=== PATIENT | female | born 1955 | race Caucasian/White ===

== ENCOUNTER 2016-12-14 13:49 | Day surgery (SDC) | payer OTHER ==
[2016-12-14] VITALS (9 sets, daily range): BP systolic 93–125; BP diastolic 59–78; PULSE 48–76; RESP 15–26; Ht 154.9 cm; Wt 69.3 kg
[~2016-12-14] VITALS: Ht 154.9 cm; Wt 69.3 kg
[~2016-12-14 13:49] MED LIST: CEFAZOLIN 2 GM/50 ML (PMX) 50 ML IVPB SCH; DESFLURANE 15 MIN ONE; DEXAMETHASONE 4 MG/ML 1 ML INJ ONE; IBUP-1542 PO; SOD CHLORIDE 0.9% 1,000 ML IV SCH; SUCCINYLCHOLINE CHLORIDE 100 MG/5 ML SYG IV ONE; TRAM50TA2 PO
[2016-12-14] MEDS ORDERED: BUPIVACAINE 0.25%/EPI (SDV) 10 ML INJ ONE (16:05)
[2016-12-14] MEDS ORDERED: LIDOCAINE 2% (SDV) 5 ML INJ ONE (16:15)
[2016-12-14] MEDS ORDERED: MIDAZOLAM 1 MG/ML 2 ML INJ ONE (16:15)
[2016-12-14] MEDS ORDERED: PROPOFOL 20 ML ONE (16:15)
[2016-12-14] MEDS ORDERED: CEFAZOLIN 1 GM INJ ONE (16:29)
[2016-12-14] MEDS ORDERED: DEXAMETHASONE 4 MG/ML 1 ML INJ ONE (16:33)
[2016-12-14] MEDS ORDERED: ONDANSETRON 4 MG INJ ONE (16:33)
[2016-12-14] MEDS ORDERED: KETOROLAC 30 MG INJ ONE (17:01)
--- NOTE | 2016-12-14 17:13 | HPN ---
Date/Time of Note Date/Time of Note DATE: 12/14/16 TIME: 17:12 Interval H&P Admission Note Pt. seen H&P reviewed: No system changes AGATA KRAUSE MD Dec 14, 2016 17:13
--- NOTE | 2016-12-14 17:16 | OPR ---
Date/Time of Note Date/Time of Note DATE: 12/14/16 TIME: 17:13 Operative Report Procedure Date: Dec 14, 2016 Preoperative Diagnosis Back mass Postoperative Diagnosis Back mass Operation Performed Excision of back mass, subfascial, 5 cm x 4.5 cm Surgeon: AGATA KRAUSE MD Anesthesia Type: general Anesthesiologist: KAJAL VIVAR DO Estimated Blood Loss: minimal Specimens Soft tissue mass of back Complications: no Pt Condition Post Procedure: stable Disposition: PACU Indications Patient is a 61-year-old female who presented to the office complaining of a mass of the lower back. This is been growing and causing increasing pain and discomfort. She was scheduled for elective excision for symptom relief and definitive pathological diagnosis. All risks and benefits of the procedure including, but not limited to: Wound infection, excessive bleeding, postoperative seroma/hematoma formation, mass recurrence etc. were all explained to the patient in full detail. She fully understood and wished to proceed with the procedure. Informed consent was obtained. Operative\Procedure Findings Consistent with lipoma 5 cm x 4.5 cm. Subfascial Procedure Description Patient was brought to the operating room placed supine on the operating table. Bilateral sequential compression devices were placed on both lower extremities. A dose of broad-spectrum perioperative intravenous antibiotics was given. After the induction of smooth general anesthesia the patient was positioned in the right lateral decubitus position with the left side up. The mass which was located just off the midline in the lower back was preoperatively marked and confirmed with the patient in the holding area. The patient's back was then prepped and draped in standard surgical fashion. After performance of the surgical timeout 0.25% Marcaine with epinephrine was injected in a radial fashion around the area of the mass creating a field block. An incision was then made using a 15 blade scalpel over the mass. Incision was carried down through the skin and subcutaneous tissues to the level of the fascia using Bovie electrocautery. Fascia was then incised. A lipomatous lesion was identified. It was dissected free of surrounding tissues and delivered into the wound and transected at its base and passed off the field as specimen. It measured approximately 4.5 cm x 5 cm in dimension. The wound cavity was then irrigated. Hemostasis was inspected for and noted to be total. The fascia was then reapproximated using a running 3-0 Vicryl suture. The wound was then closed in layers using interrupted 3-0 Vicryl sutures for the dermal layer. The skin was reapproximated using running subcuticular 4-0 Monocryl suture. Further local anesthesia was applied around the skin and the incision site. Incision was cleaned and Dermabond was applied. The patient was awoken from anesthesia and transferred to the recovery room in stable condition. All counts were correct at the end of the case 2 AGATA KRAUSE MD Dec 14, 2016 17:16
[2016-12-14] MEDS ORDERED: HYDROmorphONE (0.2 MG/ML) 10ML SYG IV PRN (17:30)
[2016-12-14] MEDS ORDERED: MEPERIDINE 25 MG INJ IV PRN (17:30)
[2016-12-14] MEDS ORDERED: DIPHENHYDRAMINE 50 MG INJ IV PRN (17:30)
[2016-12-14] MEDS ORDERED: IBUPROFEN 600 MG TAB PO PRN (18:00)
[2016-12-14] MEDS ORDERED: ONDANSETRON 4 MG INJ IV PRN (18:00)
[2016-12-14] MEDS ORDERED: KETOROLAC 30 MG INJ IV PRN (18:00)
== END 2016-12-14 18:45 | disposition home or self-care (01) ==
LOC: SDS 13:49
PROVIDERS: ATTEND Surgery
DX: D17.1 Benign lipomatous neoplasm of skin and subcutaneous tissue of trunk (principal)
CPT/HCPCS: 11406; 88307; J0690; J1100; J1885; J2250; J2405; Z7512; Z7610; J7999